=== PATIENT | female | born 1950 | race Caucasian/White ===

== ENCOUNTER → 2016-08-04 | Outpatient (CLI) | payer OTHER ==
--- NOTE | 2016-08-04 16:11 | MAMMOGRAPHY REPORT ---
BILATERAL DIGITAL SCREENING MAMMOGRAM TOMOSYNTHESIS WITH CAD: 08/04/2016 CLINICAL HISTORY: Routine screening. Patient has no complaints. TECHNIQUE: Breast tomosynthesis in addition to standard 2D mammography was performed. Current study was also evaluated with a Computer Aided Detection (CAD) system. COMPARISON: Comparison is made to exams dated: 08/03/2015 mammogram, 02/11/2015 mammogram, 08/12/2014 mammogram, 06/13/2013 mammogram - [facility], 07/14/2012 mammogram, and 04/05/2010 mammogram. BREAST COMPOSITION: There are scattered areas of fibroglandular density in both breasts. FINDINGS: No suspicious masses, calcifications, or areas of architectural distortion are noted in e ither breast. There has been no significant interval change compared to prior exams. There are fluc tuating small bilateral circumscribed benign-appearing masses, which likely represent cysts given th at cysts were seen on the prior 2014 ultrasound exam. Minimal architectural distortion in the left upper outer quadrant is stable and likely represents postsurgical changes from a prior surgical biop sy, with a report of a prior surgical biopsy of the left breast noted on a prior 2010 patient questi [place]. IMPRESSION: ACR BI-RADS CATEGORY 2: BENIGN There is no mammographic evidence of malignancy. A 1 year screening mammogram is recommended. The p atient will receive written notification of the results. Approximately 10% of breast cancers are not detected with mammography. A negative mammographic repor t should not delay biopsy if a clinically suggestive mass is present. Peyton Samuels M.D. ah/:08/04/2016 15:13:43 Caisson Worker: Brittany SPANN(Julienne)(Luis)(BD), [facility] letter sent: Normal 1/2 BI-RADS Code: ACR BI-RADS Category 2: Benign
== END | disposition home or self-care (01) ==
LOC: C.MAMM 09:31
PROVIDERS: ATTEND Internal Medicine
DX: Z12.31 Encounter for screening mammogram for malignant neoplasm of breast (principal)

== ENCOUNTER → 2016-08-12 | Outpatient (CLI) | payer OTHER ==
--- NOTE | 2016-08-12 14:15 | DIAGNOSTIC IMAGING REPORT ---
PELVIS/LEFT HIP MRI HISTORY: LEFT HIP PAIN TECHNIQUE: Multiplanar multisequence MRI of the left pelvis and hip was performed without the use of contrast. COMPARISON STUDY: Left hip 07/04/2016. FINDINGS: No fracture or dislocation within the pelvis or hips. Normal marrow signal intensity seen throughout the visualized osseous structures. No hip effusions. The hip musculature is intact. Mild edema adjacent to the bilateral greater trochanters. This is consistent with mild trochanteric bursitis. Multiple small masses within the uterus. These are hypointense on both T1 and T2 sequences. The largest mass measures 1.7 cm. These likely represent fibroids. No pelvic free fluid. No pelvic lymphadenopathy. The femoral heads are intact. The left hip cartilage space is maintained for age. IMPRESSION: 1. No fracture or dislocation within the pelvis or hips. 2. Normal marrow signal intensity seen throughout the visualized osseous structures. No evidence for femoral head avascular necrosis. 3. Mild bilateral trochanteric bursitis. 4. Multiple small uterine fibroids. Electronically signed by: Navin Nieves M.D. 08/12/2016 2:13 PM Dictated Date/Time: 08/12/2016 2:06 PM
== END | disposition home or self-care (01) ==
LOC: C.MRIBC 12:44
PROVIDERS: ATTEND Orthopaedic Surgery
DX: M25.552 Pain in left hip (principal)

== ENCOUNTER → 2017-09-06 | Outpatient (CLI) | payer OTHER ==
--- NOTE | 2017-09-06 15:24 | MAMMOGRAPHY REPORT ---
BILATERAL DIGITAL SCREENING MAMMOGRAM TOMOSYNTHESIS WITH CAD: 09/06/2017 CLINICAL HISTORY: Routine screening. Patient has no complaints. TECHNIQUE: Breast tomosynthesis in addition to standard 2D mammography was performed. Current study was also evaluated with a Computer Aided Detection (CAD) system. COMPARISON: Comparison is made to exams dated: 08/04/2016 mammogram, 08/03/2015 mammogram, 08/01/2014 [facility] mmogram, 06/13/2013 mammogram, 02/11/2015 mammogram - [facility], and 07/14/2012 [facility] mogram. BREAST COMPOSITION: There are scattered areas of fibroglandular density in both breasts. FINDINGS: No suspicious masses, calcifications, or areas of architectural distortion are noted in ei ther breast. There has been no significant interval change compared to prior exams. There are fluctu ating small bilateral circumscribed benign-appearing masses, which are not significantly changed and likely represent cysts. Minimal architectural distortion in the left upper outer quadrant is stable and likely represents postsurgical changes from a prior surgical biopsy, with a report of a prior art gical biopsy of the left breast noted on a prior 2010 patient questionnaire. IMPRESSION: ACR BI-RADS CATEGORY 2: BENIGN There is no mammographic evidence of malignancy. A 1 year screening mammogram is recommended. The pa tient will receive written notification of the results. Approximately 10% of breast cancers are not detected with mammography. A negative mammographic report should not delay biopsy if a clinically suggestive mass is present. Peyton Samuels M.D. ah/:09/06/2017 12:37:18 Stretching Machine Tender Frame: Vilma SPANN(Julienne)(M), [facility] letter sent: Normal 1/2 BI-RADS Code: ACR BI-RADS Category 2: Benign
== END | disposition home or self-care (01) ==
LOC: C.MAMM 12:19
PROVIDERS: ATTEND Obstetrics & Gynecology
DX: Z12.31 Encounter for screening mammogram for malignant neoplasm of breast (principal)

== ENCOUNTER → 2017-09-11 | Outpatient (CLI) | payer OTHER ==
--- NOTE | 2017-09-11 10:59 | DIAGNOSTIC IMAGING REPORT ---
R HAND MIN 3 VIEWS ROUTINE CLINICAL HISTORY: Q79.9 Bony abnormalityright handright COMPARISON: None. DISCUSSION: No acute fractures or dislocations are visualized. There are mild osteoarthritic changes. No bony destructive lesions are evident. IMPRESSION: 1. Mild degenerative changes 2. No fractures identified 3. No destructive lesions are visualized on conventional radiographic imaging Electronically signed by: Aaron Gregory M.D. 09/11/2017 10:58 AM Dictated Date/Time: 09/11/2017 10:57 AM
== END | disposition home or self-care (01) ==
LOC: C.RADBC 10:23
PROVIDERS: ATTEND Nurse Practitioner Adult Health
DX: Q79.9 Congenital malformation of musculoskeletal system, unspecified (principal)

== ENCOUNTER → 2017-11-15 | Day surgery (SDC) | payer OTHER, MEDICARE ==
[2017-11-06 10:41] VITALS: Ht 170.2 cm; Wt 85.0 kg
--- NOTE | 2017-11-12 12:25 | HISTORY & PHYSICAL EXAMINATION ---
DATE OF ADMISSION: 11/15/2017 CHIEF COMPLAINT: Postmenopausal bleeding. HISTORY OF PRESENT ILLNESS: The patient is a 67-year-old white female 2, para 2, who developed some red vaginal bleeding starting 10/16/2017. She denies any cramping or pelvic pain. She does have a history of fibroids. She has multiple fibroids via prior MRI, although the largest is only 1.7 cm. Ultrasound on 10/27/2017 showed her endometrial lining to be 12 mm in thickness with some microcysts. The patient has had D&Cs in the past, the last one being in 2008. Her last Pap smear was 07/04/2016 and this was negative. Endometrial biopsy was attempted in the office on 10/27/2017, but the Pipelle could not be inserted into the endometrial cavity. ALLERGIES: PENICILLIN AND LIPITOR. THE PATIENT ALSO NOTES AN ALLERGY TO SHRIMP. MEDICATIONS: The patient takes allopurinol 300 mg daily, also biotin capsules 1 daily. She uses clobetasol propionate ointment to the vulva once or twice daily. In addition, she takes doxycycline 50 mg each morning. She also takes Econazole nitrate 1% cream to affected area twice daily. In addition, Finacea gel topically. She takes levothyroxine 125 mcg daily. In addition, lisinopril 10 mg daily, vitamin D3 1000 international units daily, multivitamin daily. She uses triamcinolone cream. In addition, she takes rosuvastatin calcium 10 mg daily. ILLNESSES: The patient has carpal tunnel syndrome. In addition, she has a history of cervical radiculopathy at C6. She has a history of gout. She has hypothyroidism, hypertension, hyperlipidemia and rosacea. She also has a history of thyroid cancer. PAST SURGICAL HISTORY: She has undergone appendectomy. She has had oophorectomy. She has undergone total thyroidectomy. In addition, she has had cervical cryosurgery, and D and C. FAMILY HISTORY: There is a history of major depression with her mother. Her father has had anemia. Mother has had diabetes as well as hyperlipidemia. Her brother has hyperlipidemia and hypertension. Her brother has also had thyroid cancer. There is also a family history of macular degeneration. SOCIAL HISTORY: The patient denies smoking cigarettes. She drinks 2 alcoholic drinks per week. PHYSICAL EXAMINATION: VITAL SIGNS: Blood pressure 130/70, height is 5 feet 6-1/2 inches, weight 189 pounds. HEENT: Grossly within normal limits. NECK: Supple without masses. CHEST: Her lungs are clear without wheezing. HEART: Regular rate and rhythm. No murmurs, gallops or rubs. PELVIC: External genitalia normal. Vagina pink and smooth. Cervix appeared normal. Uterus is retroverted. Adnexa nontender with no masses. EXTREMITIES: No cyanosis, clubbing or edema. IMPRESSION: A 67-year-old white female with postmenopausal bleeding. Thickened endometrial lining by ultrasound. PLAN: The patient is for hysteroscopy, dilation of the cervix and curettage with possible removal of polyp/lesion. The patient is aware of the risks of bleeding, infection, perforation of the uterus and possible need for further surgery or treatment. DWAYNE
[~2017-11-15] VITALS: Ht 170.2 cm; Wt 85.0 kg
[~2017-11-15] MED LIST: ALLO300T2 PO; ATROPINE SULFATE 0.1 MG/ML 5ML SYR IV PRN; BIOT1CAP8 PO; CHOL1000 PO; CRS/10 PO; DEXAMETHASONE SOD INJ 4 MG/ML VIAL ONE; DOXY100C76 PO; EpHEDrine SULFATE INJ 50 MG/ML AMP IV PRN; FENTANYL CITRATE INJ 50 MCG/1 ML 2 ML VIAL ONE; IBUPROFEN 600 MG TAB PO PRN; KETOROLAC TROMETHAMINE 30 MG/ML VIAL ONE; LACTATED RINGER'S 1000ML 1,000 ML IV SCH; LEVO137T3 PO; LIDOCAINE HCL 2% 2 ML VIAL (20MG/ML) ONE; LISI10TA PO; MIDAZOLAM HCL 1 MG/ML 2ML VIAL ONE; MULT-506 PO; ONDANSETRON INJ 2 MG/ML 2 ML VIAL IV PRN; ONDANSETRON INJ 2 MG/ML 2 ML VIAL ONE; PROPOFOL IV EMULSION 10 MG/ML 20 ML VIAL IV ONE; SCOPOLAMINE 1.5 MG TDSY TD ONE; SODIUM CHLORIDE 0.9% 1000ML 1,000 ML IV SCH
--- NOTE | 2017-11-15 13:03 | History & Physical Bridge - SC ---
H&P Re-Evaluation Bridge Note: I have examined the patient, reviewed the History & Physical and in the interval since the performance of the History & Physical I have noted the following changes of clinical significance: No changes noted
--- NOTE | 2017-11-15 13:50 | [facility] Operative Report ---
Operative Report Operative Date Nov 15, 2017. Pre-Operative Diagnosis Post Menopausal Bleeding Post-Operative Diagnosis Same Procedure(s) Performed Dilatation & Curettage, Hysteroscopy & Polypectomy Surgeon Dr. Brown Stock Layer Surgeon(s) None Estimated Blood Loss 25 ml Findings See dictated note. Specimens A.) Endocervical Curettings B.) Endometrial Curettings & Polyp Drains None Anesthesia Type General Complication(s) none Disposition Recovery Room / PACU I attest to the content of the Intraoperative Record and any orders documented therein. Any exceptions are noted below.
--- NOTE | 2017-11-15 13:59 | Discharge Instructions-SurgCtr ---
Discharge Instructions Date of Service Nov 15, 2017. Visit Reason for Visit: Post-Menopausal Bleeding Discharge Discharge Diagnosis / Problem: S/P Hysteroscopy, D&C, polypectomy. Discharge Goals Goal(s): Diagnostic testing, Therapeutic intervention Activity Recommendations Activity Limitations: per Instructions/Follow-up section Anesthesia . Post Anesthesia Instructions: If you have had General Anesthesia or IV Sedation: * Do not drive today. * Resume driving when surgeon permits. * Do not make important decisions or sign legal documents today. * Call surgeon for: 1. Temperature elevations greater than 101 degrees F. 2. Uncontrollable pain. 3. Excessive bleeding. 4. Persistent nausea and vomiting. 5. Medication intolerance (nausea, vomiting or rash). * For nausea and vomiting use only clear liquids such as: tea, soda, bouillon until nausea subsides, then gradually increase diet as tolerated. * If you have any concerns or questions, call your surgeon's office. If physician is unavailable and it is an emergency, call 911 or go to the nearest emergency room. . Instructions / Follow-Up Instructions / Follow-Up ACTIVITY RECOMMENDATIONS: * Avoid tampons, douching, hot tubs, pools, and intercourse until bleeding has stopped. * May shower as usual. * No strenuous activity for 24-48 hours. After 24-48 hours, you may do anything you feel like doing (driving and sports are okay). SPECIAL CARE INSTRUCTIONS: Special Diet: * Mild nausea may occur in the immediate post-operative period. * Take clear liquids such as tea, cola or bouillon until all nausea has subsided; you may then resume your normal diet. Special Care: * Light bleeding and vaginal spotting can last from a few days to 3-4 weeks. Call your doctor if bleeding becomes heavier than the heaviest part of your period. * Check your temperature twice a day for one week. If it goes above 100.4 degrees Fahrenheit (38.0 Celsius), notify your doctor. * Call your doctor's office for an appointment for 2-4 weeks after your surgery. [phone] FOLLOW-UP VISIT: Call your doctor's office for an appointment for 2-4 weeks after your surgery. Diet Recommendations Home Diet: resume previous diet Procedures Procedures Performed: Dilatation & Curettage, Hysteroscopy & Polypectomy Pending Studies Studies pending at discharge: yes List of pending studies: Pathology report from tissue removed with D&C. We will call you with those results within one week. Medical Emergencies . Who to Call and When: Medical Emergencies: If at any time you feel your situation is an emergency, please call 911 immediately. . Non-Emergent Contact Non-Emergency issues call your: Tableau Report Developer Call Non-Emergent contact if: temperature is above 100.5, your pain is worsening . . "Provider Documentation" section prepared by Cyndee Brown. .
[2017-11-15] MEDS: FENTANYL CITRATE INJ 50 MCG/1 ML 2 ML VIAL IV PRN ×2 (14:13→14:21)
[2017-11-15 14:45] VITALS: TEMP 36.7
--- NOTE | 2017-11-15 14:56 | OPERATIVE REPORT ---
DATE OF OPERATION: 11/15/2017 PREOPERATIVE DIAGNOSIS: Postmenopausal bleeding. POSTOPERATIVE DIAGNOSIS: Postmenopausal bleeding with polypoid masses of the endometrium. PROCEDURE: Hysteroscopy, dilation and curettage of the uterus and polypectomy. SURGEON: Dr. Cyndee Brown. ANESTHESIA: General. INDUSTRIAL HYGIENE TECHNICIAN: Dr. Evans. DESCRIPTION OF PROCEDURE: The patient was taken to the operating room where general anesthesia was administered. After an adequate level was obtained, she was placed in dorsal lithotomy position. Vulva, vagina, and cervix were prepped with Betadine solution. The patient was draped. Bladder was drained with a straight catheter. Weighted speculum was placed in the posterior fornix of the vagina after a bimanual exam was performed. Uterus was noted to be retroverted and essentially normal size. There was some blood in the vault. The anterior lip of the cervix was grasped with an Allis clamp. Endocervical curettings were obtained, although these were scant. The cervix was then dilated up enough to admit the hysteroscope. Hysteroscope was used and there were several polypoid masses visualized. MyoSure instrument was used and the bulk of one of the polyps was removed with it; however, given that the fluid deficit markedly increased with use of the MyoSure and given some difficulty with visualization using the MyoSure, I opted to abandon use of the MyoSure. Hysteroscope was introduced into the cavity once more. It was confirmed that there were several more polypoid masses. The endometrial cavity was then curetted with both a serrated and smooth curette. Good uterine cry was obtained in all 4 quadrants. Polyp forceps was also used and tissue obtained with the polyp forceps. Final visualization of the endometrial cavity showed some irregular tissue consistent with the curettage, but no actual polypoid masses remaining. At this point, the procedure was ended. ESTIMATED BLOOD LOSS: 25 mL. The patient tolerated the procedure well and was taken to the recovery room in good condition. I attest to the content of the Intraoperative Record and any orders documented therein. Any exceptions are noted below. MTDD
--- NOTE | 2017-11-15 15:03 | Anesthesia Progress Nt - [facility] ---
Anesthesia Post Op Note Date & Time Nov 15, 2017 at 15:02 Vital Signs Pain Intensity: 2 Vital Signs Past 12 Hours Date Time Temp Pulse Resp B/P (MAP) Pulse Ox O2 Delivery O2 Flow Rate FiO2 11/15/17 14:45 36.7 63 16 159/80 (106) 98 Room Air 11/15/17 14:38 36.1 72 16 158/84 96 Room Air 11/15/17 14:32 86 11 98 11/15/17 14:32 89 11 11/15/17 14:31 142/81 11/15/17 14:27 71 16 11/15/17 14:27 72 16 142/102 98 11/15/17 14:26 161/101 11/15/17 14:22 76 10 98 11/15/17 14:22 76 10 11/15/17 14:21 169/90 11/15/17 14:17 79 14 100 11/15/17 14:17 82 14 11/15/17 14:16 162/93 11/15/17 14:12 69 12 11/15/17 14:12 64 12 100 11/15/17 14:11 157/89 11/15/17 14:07 78 18 11/15/17 14:07 70 18 100 11/15/17 14:06 134/87 11/15/17 14:02 67 14 100 11/15/17 14:02 68 14 11/15/17 14:01 149/91 11/15/17 13:57 79 15 11/15/17 13:57 77 15 100 11/15/17 13:56 157/86 11/15/17 13:54 36.0 84 12 165/93 98 Mask 6 11/15/17 13:54 85 24 165/93 100 11/15/17 13:54 83 24 11/15/17 11:51 36.8 73 16 152/88 (109) 96 Room Air Notes Mental Status: alert / awake / arousable, participated in evaluation Pt Amnestic to Procedure: Yes Nausea / Vomiting: adequately controlled Pain: adequately controlled Airway Patency, RR, SpO2: stable & adequate BP & HR: stable & adequate Hydration State: stable & adequate Anesthetic Complications: no major complications apparent
[2017-11-15 15:06] VITALS: BP 150/89; PULSE 79; O2SAT 97
== END | disposition home or self-care (01) ==
LOC: X.SURG 11:35
PROVIDERS: ATTEND Obstetrics & Gynecology
DX: N95.0 Postmenopausal bleeding (principal); N84.0 Polyp of corpus uteri; C54.1 Malignant neoplasm of endometrium; I10 Essential (primary) hypertension; E03.9 Hypothyroidism, unspecified; E78.5 Hyperlipidemia, unspecified; G47.33 Obstructive sleep apnea (adult) (pediatric); E66.9 Obesity, unspecified; Z91.013 Allergy to seafood; Z88.0 Allergy status to penicillin; Z88.8 Allergy status to other drugs, medicaments and biological substances; Z90.89 Acquired absence of other organs; Z98.890 Other specified postprocedural states; Z68.39 Body mass index [BMI] 39.0-39.9, adult